=== PATIENT | female | born 2005 ===

== ENCOUNTER 2024-09-03 03:01 | Emergency (ER) | payer SELFPAY ==
[2024-09-03 03:03] VITALS: BP 108/70; PULSE 56; RESP 14; TEMP 36.4; O2SAT 100
--- NOTE | 2024-09-03 04:33 | PC.NURSE ---
patient was not in room when this rn attempted to assess. pt not in bathroom, hallway or room.
== END 2024-09-03 04:55 | disposition left against medical advice (07) ==
DX: R51.9 Headache, unspecified (principal)
CPT/HCPCS: 99199